=== PATIENT | male | born 1990 | race African-American/Black ===

== ENCOUNTER 2019-06-22 21:37 | Emergency (ER) | payer MEDICAID ==
[~2019-06-22] VITALS: Ht 185.4 cm; Wt 90.7 kg
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
[2019-06-22] MEDS ORDERED: LIDOCAINE 1%-EPI 1:100,000 20 ML VIAL ONE (22:02)
[2019-06-22] MEDS ORDERED: KETOROLAC TROMETHAMINE INJ 60 MG/2 ML VIAL IM ONE ×2 (22:14→22:30)
--- NOTE | 2019-06-22 22:20 | NUR ---
XRAY AT BEDSIDE IN PROGRESS
--- NOTE | 2019-06-22 23:07 | NUR ---
DR DIAZ AT BEDSIDE
--- NOTE | 2019-06-22 23:20 | NUR ---
[employer] AT BEDSIDE FOR WOUND CARE.
[2019-06-22 23:40] VITALS: BP 120/79
== END 2019-06-22 23:41 | disposition home or self-care (01) ==
LOC: ER 21:38
DX: S71.122A Laceration with foreign body, left thigh, initial encounter (principal); Z59.0 Homelessness; W18.39XA Other fall on same level, initial encounter; Y93.89 Activity, other specified; Y92.89 Other specified places as the place of occurrence of the external cause; Y99.8 Other external cause status
CPT/HCPCS: 12032; 73552; 96372; 99284; A6403; J1885; J3490

== ENCOUNTER 2019-11-23 04:23 | Emergency (ER) | payer MEDICAID ==
[~2019-11-23] VITALS: Ht 185.4 cm; Wt 86.2 kg
[2019-11-23 04:26] VITALS: BP 128/72
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
--- NOTE | 2019-11-23 04:54 | NUR ---
PT REFUSED XRAY. RISK AND BENEFITS EXPLAINED X3. PT STRONGLY REFUSED. DR. DIAZ AT BEDSIDE.
--- NOTE | 2019-11-23 04:54 | NUR ---
PT REFUSED XRAY AND CT
--- NOTE | 2019-11-23 04:55 | NUR ---
Patient does not wish to proceed with medical care recommended by Dr. Luciano. Patient given information related to possible complications, up to and including , which could occur as a result of leaving the hospital at this time. Patient verbalizes understanding of risks involved due to leaving against medical advice. Patient has signed AMA form.
== END 2019-11-23 05:07 | disposition left against medical advice (07) ==
LOC: ER 04:24
DX: M79.644 Pain in right finger(s) (principal); F31.9 Bipolar disorder, unspecified; Z59.0 Homelessness; Y08.89XA Assault by other specified means, initial encounter; Y93.89 Activity, other specified; Y92.89 Other specified places as the place of occurrence of the external cause; Y99.8 Other external cause status